=== PATIENT | female | born 1950 | race Caucasian/White ===

== ENCOUNTER 2018-03-27 01:23 | Emergency (ER) | payer MEDICARE, OTHER ==
[2018-03-27] MEDS: HYDROCODONE/APAP (5/325) TAB PO (03:24)
== END 2018-03-27 04:05 | disposition home or self-care (01) ==
LOC: FTE 01:23
DX: K08.89 Other specified disorders of teeth and supporting structures (principal); I10 Essential (primary) hypertension; E11.9 Type 2 diabetes mellitus without complications; Z79.84 Long term (current) use of oral hypoglycemic drugs
CPT/HCPCS: 99283